=== PATIENT | male | born 1995 | race Caucasian/White ===

== ENCOUNTER 2017-01-08 20:31 | Emergency (ER) | payer OTHER ==
[~2017-01-08] VITALS: Ht 182.9 cm; Wt 84.0 kg
[~2017-01-08 20:31] MED LIST: Vicodin,Lortab 5/500 PO
[2017-01-08] MEDS ORDERED: NORCO 5/3251 TABLET PO (21:29)
[2017-01-08 21:51] VITALS: BP 144/68
== END 2017-01-08 22:00 | disposition home or self-care (01) ==
LOC: EME 20:31
PROC: 2W3FX1Z Immobilization of Left Hand using Splint (ICD-10-PCS; principal; 2017-01-08)
DX: S62.305A Unspecified fracture of fourth metacarpal bone, left hand, initial encounter for closed fracture (principal); W22.8XXA Striking against or struck by other objects, initial encounter; Y93.64 Activity, baseball; Z72.0 Tobacco use
CPT/HCPCS: 73130; 99281; 99284

== ENCOUNTER 2017-07-28 19:37 | Emergency (ER) | payer OTHER ==
[~2017-07-28] VITALS: Ht 182.9 cm; Wt 83.1 kg
[~2017-07-28 19:37] MED LIST changes: +NORCO 5/3251 TABLET PO
[2017-07-28 20:53] LABS: HEMATOCRIT 43.6 % (38.0-50.0); HEMOGLOBIN 14.6 G/DL (12.5-16.6); MCH 26.8 PG (29.0-34.0); MCHC 33.5 G/DL (30.0-36.0); PLATELET COUNT 166 K/uL (156-360); RBC DIS.WIDTH-CV 12.2 % (11.8-14.6); RED BLOOD COUNT 5.45 M/uL (4.00-5.50); WHITE BLOOD COUNT 4.8 K/uL (4.1-10.2)
[2017-07-28 20:59] LABS: APPEARANCE SL.HAZY ((CLEAR)); BILIRUBIN NEGATIVE; BLOOD NEGATIVE; COLOR YELLOW ((YELLOW)); GLUCOSE (STRIP) NEGATIVE; KETONES 20; LEUKOCYTES NEGATIVE; NITRITE NEGATIVE; PROTEIN (STRIP) 30; SPECIFIC GRAVITY 1.024 (1.000-1.030); UROBILINOGEN 0.2 MG/DL (0.2-1.0)
[2017-07-28 21:03] LABS: CHLORIDE 104 mEq/L (99-109); POTASSIUM 4.4 mEq/L (3.7-5.4); SODIUM 141 mEq/L (136-147)
[2017-07-28 21:05] LABS: GLUCOSE 103 mg/dL (70-99)
[2017-07-28 21:09] LABS: CREATININE 0.8 mg/dL (0.6-1.3); GFR ESTIMATE (CALCULATED) > 59 mL/min/ (58.99-99999)
[2017-07-28 21:10] LABS: UREA NITROGEN (BUN) 10 mg/dL (9-23)
[2017-07-28 21:10] LABS: BACTERIA NONE SEEN /HPF; EPITHELIAL CELLS RARE /HPF; MUCUS 2+ /LPF; RED BLOOD CELLS 0-5 /HPF (0-5); UCUL ADDED? NO; WHITE BLOOD CELLS 0-5 /HPF (0-5)
[2017-07-28] MEDS ORDERED: ZOFRAN ODT4 MG PO (21:49)
[2017-07-28 22:13] VITALS: BP 140/73
== END 2017-07-28 22:29 | disposition home or self-care (01) ==
LOC: EME 19:37
PROVIDERS: Physician Assistant
DX: R11.2 Nausea with vomiting, unspecified (principal); Z79.891 Long term (current) use of opiate analgesic; Z95.9 Presence of cardiac and vascular implant and graft, unspecified
CPT/HCPCS: 80048; 81003; 85027; 99281; 99284; J2405; J7030

== ENCOUNTER 2018-01-05 05:04 | Emergency (ER) | payer OTHER ==
[~2018-01-05] VITALS: Ht 182.9 cm; Wt 86.4 kg
[~2018-01-05 05:04] MED LIST changes: +ZOFRAN ODT4 MG PO
[2018-01-05 05:33] LABS: HEMATOCRIT 43.8 % (38.0-50.0); MCH 27.6 PG (29.0-34.0); MCHC 34.2 G/DL (30.0-36.0); MCV 80.5 FL (86-99); PLATELET COUNT 195 K/uL (156-360); RBC DIS.WIDTH-CV 12.4 % (11.8-14.6); RBC DIS.WIDTH-SD 35.8 % (39-53); RED BLOOD COUNT 5.44 M/uL (4.00-5.50)
[2018-01-05 05:40] LABS: CHLORIDE 104 mEq/L (99-109); POTASSIUM 3.3 mEq/L (3.7-5.4); SODIUM 140 mEq/L (136-147)
[2018-01-05 05:42] LABS: GLUCOSE 103 mg/dL (70-99)
[2018-01-05 05:46] LABS: GFR ESTIMATE (CALCULATED) > 59 mL/min/ (58.99-99999)
[2018-01-05 05:47] LABS: UREA NITROGEN (BUN) 13 mg/dL (9-23)
[2018-01-05] MEDS ORDERED: NORCO 5/3251 TABLET PO (06:44)
[2018-01-05 07:39] VITALS: BP 127/60
== END 2018-01-05 07:43 | disposition home or self-care (01) ==
LOC: TRA 05:04
PROVIDERS: Emergency Medicine
PROC: 3E0234Z Introduction of Serum, Toxoid and Vaccine into Muscle, Percutaneous Approach (ICD-10-PCS; principal; 2018-01-05)
DX: T22.231A Burn of second degree of right upper arm, initial encounter (principal); T23.202A Burn of second degree of left hand, unspecified site, initial encounter; X03.0XXA Exposure to flames in controlled fire, not in building or structure, initial encounter; Y93.89 Activity, other specified; Z23 Encounter for immunization
CPT/HCPCS: 80048; 85027; 99281; 99285; J3010; J7030